=== PATIENT | male | born 1960 | race Caucasian/White ===

== ENCOUNTER 2019-01-10 18:33 | Emergency (ER) | payer MEDICARE, MEDICAID ==
[~2019-01-10] VITALS: Ht 165.1 cm; Wt 80.0 kg
[2019-01-10 19:00] VITALS: BP 181/94
[2019-01-10] MEDS ORDERED: ACETAMINOPHEN 325MG TABLET PO STA (19:01)
[2019-01-10] MEDS ORDERED: VANCOMYCIN 1 G PREMIX 200 ML IV ONE (19:15)
[2019-01-10] MEDS ORDERED: PIPERACILLIN/TAZ 3.375G PREMIX 50 ML IV ONE (19:15)
[2019-01-10 19:22] LABS: BASOPHILS % 0.8 % (0.0-2.0); EOSINOPHILS % 2.9 % (0.0-5.0); HEMATOCRIT. 29.6 % (42.0-52.0); HEMOGLOBIN. 10.3 g/dL (14.0-18.0); MEAN CORPUSCULAR HEMOGLOBIN 31.8 pg (28.0-32.0); MEAN CORPUSCULAR VOLUME 91.9 fL (80.0-94.0); MEAN PLATELET VOLUME 8.2 fl (7.4-10.4); NEUTROPHILS % 69.3 % (40.0-76.0); PLATELET 219 x1000/uL (130-400); RED BLOOD CELL COUNT 3.22 mill/uL (4.7-6.1); RED CELL DISTRIBUTION WIDTH 13.8 % (11.6-14.6)
[2019-01-10 19:31] LABS: PROTHROMBIN TIME 10.4 sec (9.6-11.0)
[2019-01-10 19:40] LABS: CHLORIDE 93 mEq/L (98-107)
[2019-01-11] MEDS ORDERED: METO-539 MT (18:28)
[2019-01-11] MEDS ORDERED: DONE5TAB33 MT (18:28)
[2019-01-11] MEDS ORDERED: HYDR-4135 MT (18:28)
[2019-01-11] MEDS ORDERED: BENA10TA10 MT (18:28)
[2019-01-11] MEDS ORDERED: CLOP75TA33 MT (18:28)
[2019-01-11] MEDS ORDERED: LOPE2CAP PO (18:28)
[2019-01-11] MEDS ORDERED: ASPI-1393 PO (18:28)
[2019-01-11] MEDS ORDERED: MINO2.5T2 MT (18:28)
[2019-01-11] MEDS ORDERED: CINA30 MT (18:28)
[2019-01-11] MEDS ORDERED: CLON0.1T MT (18:28)
[2019-01-11] MEDS ORDERED: ERGO2000 MT (18:28)
[2019-01-11] MEDS ORDERED: FOLI0.8T23 MT (18:37)
[2019-01-11] MEDS ORDERED: CALC1SOL PO (18:37)
== END 2019-01-10 21:26 | disposition left against medical advice (07) ==
LOC: ER 18:33 → EDBEDREQ 19:17 → ER 21:26 → CANBEDREQ 01-11 00:32
DX: A41.9 Sepsis, unspecified organism (principal); E11.22 Type 2 diabetes mellitus with diabetic chronic kidney disease; I12.0 Hypertensive chronic kidney disease with stage 5 chronic kidney disease or end stage renal disease; N18.6 End stage renal disease; Z86.73 Personal history of transient ischemic attack (TIA), and cerebral infarction without residual deficits; Z99.2 Dependence on renal dialysis
CPT/HCPCS: 36415; 71045; 80053; 83605; 84145; 84484; 85025; 85610; 87040; 93005; 96365; 96368; 99291; J2543; J3370

== ENCOUNTER 2019-01-11 08:50 | Inpatient (IN) | payer MEDICARE, MEDICAID ==
[~2019-01-11] VITALS: Ht 165.1 cm; Wt 79.8 kg
[2019-01-11] MEDS ORDERED: ACETAMINOPHEN 500MG TABLET PO ONE (09:30)
[2019-01-11] MEDS ORDERED: PIPERACILLIN/TAZ 3.375G PREMIX 50 ML IV ONE (09:30)
[2019-01-11] MEDS ORDERED: VANCOMYCIN 1 G PREMIX 200 ML IV ONE (09:30)
[2019-01-11] MEDS ORDERED: SODIUM CHLORIDE 0.9% 1000ML BAG (SEPSIS BOLUS) IV ONE (09:30)
[2019-01-11 09:45] LABS: BASOPHILS % 0.6 % (0.0-2.0); HEMATOCRIT. 26.1 % (42.0-52.0); LYMPHOCYTES % 14.8 % (20.0-50.0); MEAN CORPUSCULAR VOLUME 92.4 fL (80.0-94.0); MEAN PLATELET VOLUME 7.8 fl (7.4-10.4); MONOCYTES % 12.3 % (2.0-8.0); NEUTROPHILS % 69.3 % (40.0-76.0); PLATELET 188 x1000/uL (130-400); RED BLOOD CELL COUNT 2.82 mill/uL (4.7-6.1); RED CELL DISTRIBUTION WIDTH 13.6 % (11.6-14.6)
[2019-01-11 09:52] LABS: CHLORIDE 93 mEq/L (98-107)
[2019-01-11 09:53] LABS: PROTHROMBIN TIME 10.7 sec (9.6-11.0)
[2019-01-11] MEDS ORDERED: MAGNESIUM/ALUMINUM HYDROXIDE/SIMETHICONE 30ML UDC PO PRN (11:30)
[2019-01-11] MEDS ORDERED: HYDROCODONE/ACETAMINOPHEN 5/325MG TABLET PO PRN (11:30)
[2019-01-11] MEDS ORDERED: LORAZEPAM 0.5MG TABLET PO PRN (11:30)
[2019-01-11] MEDS ORDERED: IPRATROPIUM/ALBUTEROL 0.5-3(2.5)MG/3ML NEB INH PRN (11:30)
[2019-01-11] MEDS ORDERED: ONDANSETRON HCL 4MG/2ML INJ IV PRN (11:30)
[2019-01-11] MEDS ORDERED: DEXTROSE 50% WATER 50ML SYRINGE IV PRN (11:30)
[2019-01-11] MEDS ORDERED: DIPHENHYDRAMINE 50MG/ML VIAL IV PRN (11:30)
[2019-01-11] MEDS ORDERED: ACETAMINOPHEN 650MG SUPP PR PRN (11:30)
[2019-01-11] MEDS ORDERED: DOCUSATE SODIUM 100MG CAPSULE PO PRN (11:30)
[2019-01-11] MEDS ORDERED: GUAIFENESIN 200MG/10ML SUGAR FREE UDC PO PRN (11:30)
[2019-01-11] MEDS ORDERED: ACETAMINOPHEN 325MG TABLET PO PRN (11:30)
[2019-01-11] MEDS ORDERED: CARVEDILOL 3.125 MG TABLET PO NR (13:00)
[2019-01-11] MEDS ORDERED: LOSARTAN POTASSIUM 50 MG TABLET PO SCH (13:00)
[2019-01-11 13:15] VITALS: BP 172/84
[2019-01-11] MEDS ORDERED: SODIUM POLYSTYRENE SULFONATE 15 G/60 ML BOT PO NR (14:00)
[2019-01-11 15:30] LABS: BG BASE EXCESS -1.6 mmol/L (-2.0-2.0); BG CARBOXYHEMOGLOBIN 0.8 % (0.5-1.5); BG DEOXYHEMOGLOBIN 8.1 % (0.0-5.0); BG HCO3 ACT 22.7 mmol/L (22.0-26.0); BG METHEMOGLOBIN 0.2 % (0.0-1.5); BG OXYGEN SATURATION 91.8 % (92.0-98.5); BG OXYHEMOGLOBIN 90.9 % (94.0-97.0); BG PCO2 36.4 mmHg (35.0-45.0); BG PH 7.413 (7.350-7.450); BG PO2 67.7 mmHg (75.0-100.0); BG SAMPLE SITE LEFT RADIAL; BG VENT MODE ROOM AIR
[2019-01-11 15:40] VITALS: BP 189/89
[2019-01-11] MEDS: BLOOD SUGAR DIAGNOSTIC STRIP TEST SCH ×3 (17:20→21:00)
[2019-01-11] MEDS: INSULIN LISPRO 100 UNITS/ML SUBCUT SCH ×3 (17:37→21:00)
[2019-01-11] MEDS ORDERED: PIPERACILLIN/TAZ 2.25G PREMIX 50 ML IV SCH (18:00)
[2019-01-11] MEDS ORDERED: ASPI-1393 PO (18:28)
[2019-01-11] MEDS ORDERED: CLON0.1T MT (18:28)
[2019-01-11] MEDS ORDERED: MINO2.5T2 MT (18:28)
[2019-01-11] MEDS ORDERED: ERGO2000 MT (18:28)
[2019-01-11] MEDS ORDERED: METO-539 MT (18:28)
[2019-01-11] MEDS ORDERED: CINA30 MT (18:28)
[2019-01-11] MEDS ORDERED: CLOP75TA33 MT (18:28)
[2019-01-11] MEDS ORDERED: DONE5TAB33 MT (18:28)
[2019-01-11] MEDS ORDERED: HYDR-4135 MT (18:28)
[2019-01-11] MEDS ORDERED: BENA10TA10 MT (18:28)
[2019-01-11] MEDS ORDERED: LOPE2CAP PO (18:28)
[2019-01-11] MEDS ORDERED: CALC1SOL PO (18:37)
[2019-01-11] MEDS ORDERED: FOLI0.8T23 MT (18:37)
[2019-01-11 20:00] VITALS: BP 170/89
[2019-01-11] MEDS ORDERED: EPOETIN ALFA 4000UNITS/ML VIAL SUBCUT SCH (21:00)
[2019-01-11] MEDS ORDERED: VANCOMYCIN 1 G PREMIX 200 ML IV NR (22:00)
[2019-01-11] MEDS: CARVEDILOL 3.125 MG TABLET PO SCH (22:31)
[2019-01-11] MEDS: PIPERACILLIN/TAZ 2.25G PREMIX 50 ML IV SCH (22:31)
[2019-01-12] VITALS: BP 167/88
[2019-01-12] MEDS: IPRATROPIUM/ALBUTEROL 0.5-3(2.5)MG/3ML NEB INH SCH ×3 (00:24→15:04)
[2019-01-12] MEDS: CLONIDINE 0.1MG TABLET PO PRN ×2 (03:40→20:40)
[2019-01-12 04:00] VITALS: BP 164/87
[2019-01-12] MEDS: PIPERACILLIN/TAZ 2.25G PREMIX 50 ML IV SCH ×2 (05:30→13:43)
[2019-01-12] MEDS: INSULIN LISPRO 100 UNITS/ML SUBCUT SCH ×3 (06:26→18:22)
[2019-01-12] MEDS: BLOOD SUGAR DIAGNOSTIC STRIP TEST SCH ×3 (06:26→18:15)
[2019-01-12 06:52] LABS: BASOPHILS % 0.5 % (0.0-2.0); HEMATOCRIT. 22.6 % (42.0-52.0); HEMOGLOBIN. 7.9 g/dL (14.0-18.0); LYMPHOCYTES % 19.1 % (20.0-50.0); MEAN CORPUSCULAR HEMOGLOBIN 32.2 pg (28.0-32.0); MEAN CORPUSCULAR VOLUME 92.3 fL (80.0-94.0); MEAN PLATELET VOLUME 7.8 fl (7.4-10.4); MONOCYTES % 12.9 % (2.0-8.0); NEUTROPHILS % 61.5 % (40.0-76.0); PLATELET 169 x1000/uL (130-400); RED BLOOD CELL COUNT 2.45 mill/uL (4.7-6.1); RED CELL DISTRIBUTION WIDTH 13.6 % (11.6-14.6)
[2019-01-12 08:29] LABS: CHLORIDE 96 mEq/L (98-107)
[2019-01-12 08:43] LABS: LDL CHOLESTEROL 133 mg/dL (5-100)
[2019-01-12 08:44] LABS: HDL CHOLESTEROL 32 mg/dL (40-59); T4 FREE 0.87 ng/dL (0.76-1.46)
[2019-01-12] MEDS: CARVEDILOL 3.125 MG TABLET PO SCH (09:00)
[2019-01-12 12:00] VITALS: BP 158/82
[2019-01-12 15:12] LABS: HEMATOCRIT 24.6 % (42.0-52.0); HEMOGLOBIN 8.4 g/dL (14.0-18.0)
[2019-01-12 16:17] VITALS: BP 169/86
[2019-01-12 20:00] VITALS: BP 170/86
[2019-01-12 20:03] VITALS: BP 161/74
== END 2019-01-12 21:25 | disposition home or self-care (01) | DRG 871 ==
LOC: ER 08:50 → 6WST 10:14 → EDBEDREQ 10:20 → EDBEDREQSVC 10:20 → ENRESERV 11:28 → 6WST 17:32
PROVIDERS: ADMIT Internal Medicine; ATTEND Internal Medicine
PROC: 5A1D70Z Performance of Urinary Filtration, Intermittent, Less than 6 Hours Per Day (ICD-10-PCS; principal; 2019-01-11)
DX: A41.9 Sepsis, unspecified organism (principal); I50.23 Acute on chronic systolic (congestive) heart failure; N18.6 End stage renal disease; J18.9 Pneumonia, unspecified organism; D68.59 Other primary thrombophilia; E87.1 Hypo-osmolality and hyponatremia; I13.2 Hypertensive heart and chronic kidney disease with heart failure and with stage 5 chronic kidney disease, or end stage renal disease; I69.354 Hemiplegia and hemiparesis following cerebral infarction affecting left non-dominant side; D64.9 Anemia, unspecified; E11.22 Type 2 diabetes mellitus with diabetic chronic kidney disease; E78.00 Pure hypercholesterolemia, unspecified; E78.5 Hyperlipidemia, unspecified; E87.5 Hyperkalemia; K81.9 Cholecystitis, unspecified; K42.9 Umbilical hernia without obstruction or gangrene; Z99.2 Dependence on renal dialysis
CPT/HCPCS: 36415; 36600; 71045; 74176; 76700; 78227; 80061; 82375; 82805; 82962; 83605; 84145; 84439; 84443; 84484; 85014; 85018; 93005; 94640; 96365; 96368; 99291; A9537; J0885; J1815; J2543; J3370; J7030; J7050; J7620

== ENCOUNTER 2019-08-17 16:49 | Inpatient (IN) | payer MEDICARE, MEDICAID ==
[~2019-08-17] VITALS: Ht 165.1 cm; Wt 81.6 kg
[~2019-08-17 16:49] MED LIST: ASPI-1497 PO; BENA10TA74 MT; CALC1SOL PO; CINA30 MT; CLON0.1T MT; CLOP75TA33 MT; DONE5TAB33 MT; ERGO2000 MT; FOLI0.8T23 MT; HYDR-4135 MT; LOPE2CAP PO; METO-539 MT; MINO2.5T2 MT
[2019-08-17] MEDS ORDERED: SODIUM CHLORIDE 0.9% 1,000 ML IV ONE (18:05)
[2019-08-17] MEDS ORDERED: MORPHINE SULFATE 4 MG/ML CPJ (NOT FOR IM USE) IV STA (18:05)
[2019-08-17] MEDS ORDERED: ONDANSETRON HCL 4MG/2ML INJ IV STA (18:05)
[2019-08-17 19:07] LABS: BASOPHILS % 0.6 % (0.0-2.0); EOSINOPHILS % 2.7 % (0.0-5.0); HEMOGLOBIN. 9.8 g/dL (14.0-18.0); LYMPHOCYTES % 13.4 % (20.0-50.0); MEAN CORPUSCULAR HEMOGLOBIN 29.7 pg (28.0-32.0); MEAN CORPUSCULAR VOLUME 90.9 fL (80.0-94.0); MEAN PLATELET VOLUME 7.4 fl (7.4-10.4); MONOCYTES % 5.8 % (2.0-8.0); NEUTROPHILS % 77.5 % (40.0-76.0); PLATELET 194 x1000/uL (130-400); RED CELL DISTRIBUTION WIDTH 16.3 % (11.6-14.6)
[2019-08-17 19:10] LABS: CHLORIDE 100 mEq/L (98-107)
[2019-08-17 19:11] LABS: INR 1.1; PROTHROMBIN TIME 11.1 sec (9.6-11.0)
[2019-08-18] VITALS (7 sets, daily range): BP systolic 115–168; BP diastolic 69–89
[2019-08-18] MEDS ORDERED: DIPHENHYDRAMINE 25MG CAPSULE PO ONE (00:15)
[2019-08-18] MEDS ORDERED: DIPHENHYDRAMINE 25MG CAPSULE PO PRN (04:00)
[2019-08-18] MEDS ORDERED: TRAMADOL 50MG TABLET PO PRN (04:00)
[2019-08-18] MEDS ORDERED: BENAZEPRIL 10MG TABLET PO SCH (09:00)
[2019-08-18] MEDS ORDERED: METOPROLOL TARTRATE 50MG TABLET PO SCH (09:00)
[2019-08-18] MEDS ORDERED: FOLIC ACID/VITAMIN B COMP W-C TABLET PO SCH (09:00)
[2019-08-18] MEDS ORDERED: CLONIDINE 0.1MG TABLET PO SCH (09:00)
[2019-08-18] MEDS ORDERED: HYDRALAZINE HCL 50MG TABLET PO SCH (09:00)
[2019-08-18] MEDS ORDERED: ERGOCALCIFEROL MT SCH (09:00)
[2019-08-18] MEDS ORDERED: ASPIRIN 81MG EC TABLET PO SCH (09:00)
[2019-08-18] MEDS: CINACALCET HCL 30MG TABLET PO SCH ×2 (09:22→18:17)
[2019-08-18] MEDS: DONEPEZIL HCL 5MG TABLET PO SCH ×2 (09:23→18:17)
[2019-08-18] MEDS ORDERED: CLOPIDOGREL 75MG TABLET PO SCH ×3 (11:00→17:00)
[2019-08-18] MEDS: MINOXIDIL 2.5MG TABLET PO SCH ×2 (13:22→18:17)
[2019-08-18] MEDS ORDERED: CLONIDINE 0.1MG TABLET PO NR (14:00)
[2019-08-18] MEDS ORDERED: ONDANSETRON HCL 4MG/2ML INJ IV PRN (15:15)
[2019-08-18] MEDS ORDERED: IPRATROPIUM/ALBUTEROL 0.5-3(2.5)MG/3ML NEB HHN PRN (15:15)
[2019-08-18] MEDS ORDERED: BISACODYL 10MG SUPP PR PRN (15:15)
[2019-08-18] MEDS ORDERED: MORPHINE SULFATE 2 MG/ML CPJ (NOT FOR IM USE) IV PRN (15:15)
[2019-08-18] MEDS ORDERED: HYDRALAZINE 20MG/ML VIAL IV PRN (15:15)
[2019-08-18 15:58] LABS: CHLORIDE 104 mEq/L (98-107)
[2019-08-18 16:59] LABS: HEMATOCRIT. 29.1 % (42.0-52.0); HEMOGLOBIN. 9.5 g/dL (14.0-18.0); MEAN CORPUSCULAR HEMOGLOBIN 29.8 pg (28.0-32.0); MEAN PLATELET VOLUME 7.5 fl (7.4-10.4); PLATELET 177 x1000/uL (130-400); RED CELL DISTRIBUTION WIDTH 16.6 % (11.6-14.6)
[2019-08-18 17:28] LABS: PLATELET ESTIMATE NORMAL
[2019-08-18] MEDS ORDERED: EPOETIN ALFA 4000UNITS/ML VIAL SUBCUT SCH (21:00)
== END 2019-08-18 20:20 | disposition home or self-care (01) | DRG 391 ==
LOC: ER 16:49 → EDBEDREQSVC 08-18 00:41 → EDBEDREQTM 08-18 00:41 → EDBEDREQ 08-18 00:41 → EDBEDREQDT 08-18 00:41 → ENRESERV 08-18 02:19 → 7WST 08-18 03:38
PROVIDERS: ADMIT Internal Medicine; ATTEND Internal Medicine
PROC: 5A1D70Z Performance of Urinary Filtration, Intermittent, Less than 6 Hours Per Day (ICD-10-PCS; principal; 2019-08-18)
DX: K52.9 Noninfective gastroenteritis and colitis, unspecified (principal); I50.23 Acute on chronic systolic (congestive) heart failure; N18.6 End stage renal disease; I13.2 Hypertensive heart and chronic kidney disease with heart failure and with stage 5 chronic kidney disease, or end stage renal disease; D68.59 Other primary thrombophilia; R18.8 Other ascites; D64.9 Anemia, unspecified; E11.22 Type 2 diabetes mellitus with diabetic chronic kidney disease; E78.00 Pure hypercholesterolemia, unspecified; E78.5 Hyperlipidemia, unspecified; E87.5 Hyperkalemia; Z86.73 Personal history of transient ischemic attack (TIA), and cerebral infarction without residual deficits; Z90.49 Acquired absence of other specified parts of digestive tract; Z99.2 Dependence on renal dialysis; Z79.899 Other long term (current) drug therapy; Z79.82 Long term (current) use of aspirin
CPT/HCPCS: 36415; 74176; 80053; 83880; 84484; 85025; 86850; 86900; 93005; 96374; 96375; 99285; J0885; J2270; J2405; J7030; Q0163

== ENCOUNTER 2021-06-13 08:27 | Inpatient (IN) | payer MEDICARE, MEDICAID ==
[~2021-06-13] VITALS: Ht 167.6 cm; Wt 74.4 kg
[~2021-06-13 08:27] MED LIST changes: -CLON0.1T MT; +CLON0.1T PO; -CLOP75TA33 MT; +CLOP75TA33 PO; -HYDR-4135 MT; +HYDR-4135 PO; -LOPE2CAP PO; -METO-539 MT; +METO-539 PO; -MINO2.5T2 MT; +MINO2.5T2 PO
[2021-06-13 11:15] LABS: BASOPHILS % 0.7 % (0.0-2.0); EOSINOPHILS % 2.6 % (0.0-5.0); HEMATOCRIT. 39.2 % (42.0-52.0); HEMOGLOBIN. 12.9 g/dL (14.0-18.0); LYMPHOCYTES % 11.4 % (20.0-50.0); MEAN CORPUSCULAR HEMOGLOBIN 29.6 pg (28.0-32.0); MEAN CORPUSCULAR VOLUME 89.9 fL (80.0-94.0); MEAN PLATELET VOLUME 8.3 fl (7.4-10.4); MONOCYTES % 10.4 % (2.0-8.0); NEUTROPHILS % 74.9 % (40.0-76.0); PLATELET 134 x1000/uL (130-400); RED BLOOD CELL COUNT 4.36 mill/uL (4.7-6.1); RED CELL DISTRIBUTION WIDTH 16.1 % (11.6-14.6)
[2021-06-13 11:20] LABS: CHLORIDE 95 mEq/L (98-107)
[2021-06-13] MEDS ORDERED: ALBUTEROL (0.083%) 2.5MG/3ML NEB HHN NR (14:00)
[2021-06-13] MEDS ORDERED: FUROSEMIDE 40MG/4ML VIAL IV NR (14:00)
[2021-06-13] MEDS ORDERED: INSULIN REGULAR (HUMULIN R) 300UNITS/3ML VIAL IV NR (14:00)
[2021-06-13] MEDS ORDERED: ALBUTEROL 6.7GM HFA INHALER ORI PRN (17:30)
[2021-06-13] MEDS ORDERED: CLONIDINE 0.1MG TABLET PO PRN (17:30)
[2021-06-13] MEDS ORDERED: DOCUSATE SODIUM 100MG CAPSULE PO PRN (17:30)
[2021-06-13] MEDS ORDERED: GUAIFENESIN 200MG/10ML SUGAR FREE UDC PO PRN (17:30)
[2021-06-13] MEDS ORDERED: ONDANSETRON HCL 4MG/2ML INJ IV PRN (17:30)
[2021-06-13] MEDS ORDERED: MAGNESIUM/ALUMINUM HYDROXIDE/SIMETHICONE 30ML UDC PO PRN (17:30)
[2021-06-13] MEDS ORDERED: DEXTROSE 50% WATER 50ML SYRINGE IV PRN (17:30)
[2021-06-13] MEDS ORDERED: MORPHINE SULFATE 2 MG/ML CPJ (NOT FOR IM USE) IV PRN (17:30)
[2021-06-13] MEDS ORDERED: DIPHENHYDRAMINE 50MG/ML VIAL IV PRN (17:30)
[2021-06-13] MEDS ORDERED: LORAZEPAM 2MG/ML CPJ IV PRN (17:30)
[2021-06-13] MEDS ORDERED: AZITHROMYCIN 500 MG in DEXT 5% WATER 250 ML IV SCH (18:00)
[2021-06-13] MEDS ORDERED: CEFTRIAXONE 1 G PREMIX 50 ML IV NR (18:00)
[2021-06-13] MEDS: INSULIN LISPRO 100 UNITS/ML SUBCUT SCH ×2 (18:37→23:09)
[2021-06-13 18:49] LABS: HEPATITIS B SURFACE ANTIGEN NEGATIVE
[2021-06-13] MEDS: AZITHROMYCIN 500 MG in DEXT 5% WATER 250 ML IV SCH (20:16)
[2021-06-13 22:00] VITALS: BP 104/65
[2021-06-13] MEDS ORDERED: CALC667T6 PO (22:24)
[2021-06-13] MEDS ORDERED: FURO40TA5 PO (22:24)
[2021-06-13] MEDS ORDERED: ATOR40TA70 PO (22:24)
[2021-06-13] MEDS ORDERED: DIPH1TAB24 PO (22:24)
[2021-06-13] MEDS ORDERED: GABA-529 PO (22:24)
[2021-06-13] MEDS: ACETAMINOPHEN 325MG TABLET PO PRN (22:56)
[2021-06-13] MEDS: SODIUM CHLORIDE 0.9% INJ 3ML FLUSH IVF SCH (22:57)
[2021-06-13] MEDS: ENOXAPARIN 30MG/0.3ML SYR SUBCUT SCH (22:57)
[2021-06-13] MEDS: BLOOD SUGAR DIAGNOSTIC STRIP TEST SCH (22:57)
[2021-06-13] MEDS ORDERED: NALOXONE HCL 0.4 MG/ML 1ML VIAL IV PRN (23:45)
[2021-06-13] MEDS ORDERED: LACTULOSE 20G/30ML UDC PO SCH (23:45)
[2021-06-14] VITALS: BP 126/85
[2021-06-14] MEDS ORDERED: SODIUM POLYSTYRENE SULFONATE 15 G/60 ML BOT PO SCH (01:00)
[2021-06-14 04:00] VITALS: BP 120/45
[2021-06-14] MEDS: SODIUM CHLORIDE 0.9% INJ 3ML FLUSH IVF SCH ×3 (05:38→20:58)
[2021-06-14] MEDS: BLOOD SUGAR DIAGNOSTIC STRIP TEST SCH ×4 (06:18→20:58)
[2021-06-14 06:19] LABS: BASOPHILS % 0.7 % (0.0-2.0); EOSINOPHILS % 0.1 % (0.0-5.0); HEMATOCRIT. 32.8 % (42.0-52.0); HEMOGLOBIN. 10.9 g/dL (14.0-18.0); LYMPHOCYTES % 13.5 % (20.0-50.0); MEAN CORPUSCULAR HEMOGLOBIN 30.1 pg (28.0-32.0); MEAN CORPUSCULAR VOLUME 90.8 fL (80.0-94.0); MEAN PLATELET VOLUME 8.5 fl (7.4-10.4); MONOCYTES % 13.8 % (2.0-8.0); NEUTROPHILS % 71.9 % (40.0-76.0); PLATELET 142 x1000/uL (130-400); RED BLOOD CELL COUNT 3.61 mill/uL (4.7-6.1); RED CELL DISTRIBUTION WIDTH 15.9 % (11.6-14.6)
[2021-06-14 06:23] LABS: CHLORIDE 99 mEq/L (98-107)
[2021-06-14] MEDS: INSULIN LISPRO 100 UNITS/ML SUBCUT SCH ×4 (07:56→20:58)
[2021-06-14 08:00] VITALS: BP 129/71
[2021-06-14] MEDS: HYDROCODONE/ACETAMINOPHEN 5/325MG TABLET PO PRN ×2 (10:33→21:58)
[2021-06-14 12:00] VITALS: BP 125/75
[2021-06-14] MEDS ORDERED: GUAIFENESIN-DM 200MG-20MG/10ML UDC PO PRN (13:45)
[2021-06-14] MEDS: ACETAMINOPHEN 325MG TABLET PO PRN (15:30)
[2021-06-14 16:00] VITALS: BP 111/68
[2021-06-14] MEDS: CEFTRIAXONE 1,000 MG in DEXTROSE 5% WATER 50 ML IV SCH (18:56)
[2021-06-14] MEDS: AZITHROMYCIN 500 MG in DEXT 5% WATER 250 ML IV SCH (18:56)
[2021-06-14 20:00] VITALS: BP 112/65
[2021-06-14] MEDS: ENOXAPARIN 30MG/0.3ML SYR SUBCUT SCH (20:57)
[2021-06-15] VITALS: BP 111/68
[2021-06-15 04:00] VITALS: BP 120/76
[2021-06-15] MEDS: SODIUM CHLORIDE 0.9% INJ 3ML FLUSH IVF SCH ×3 (05:49→21:08)
[2021-06-15] MEDS: BLOOD SUGAR DIAGNOSTIC STRIP TEST SCH ×4 (05:50→21:07)
[2021-06-15 08:00] VITALS: BP 109/79
[2021-06-15] MEDS: INSULIN LISPRO 100 UNITS/ML SUBCUT SCH ×4 (08:00→21:10)
[2021-06-15 12:00] VITALS: BP 115/70
[2021-06-15 16:00] VITALS: BP 111/75
[2021-06-15] MEDS: CEFTRIAXONE 1,000 MG in DEXTROSE 5% WATER 50 ML IV SCH (17:21)
[2021-06-15] MEDS: AZITHROMYCIN 500 MG in DEXT 5% WATER 250 ML IV SCH (17:36)
[2021-06-15 20:00] VITALS: BP 103/62
[2021-06-15] MEDS: ACETAMINOPHEN 325MG TABLET PO PRN (21:07)
[2021-06-15] MEDS: ENOXAPARIN 30MG/0.3ML SYR SUBCUT SCH (21:07)
[2021-06-16] VITALS: BP 110/71
[2021-06-16] MEDS: ACETAMINOPHEN 325MG TABLET PO PRN ×2 (03:10→15:55)
[2021-06-16 04:00] VITALS: BP 98/67
[2021-06-16] MEDS: SODIUM CHLORIDE 0.9% INJ 3ML FLUSH IVF SCH ×3 (06:15→21:55)
[2021-06-16] MEDS: BLOOD SUGAR DIAGNOSTIC STRIP TEST SCH ×4 (06:15→21:53)
[2021-06-16 08:00] VITALS: BP 97/59
[2021-06-16] MEDS: INSULIN LISPRO 100 UNITS/ML SUBCUT SCH ×4 (08:35→21:00)
[2021-06-16 12:00] VITALS: BP 96/57
[2021-06-16 16:00] VITALS: BP 108/70
[2021-06-16] MEDS: AZITHROMYCIN 500 MG in DEXT 5% WATER 250 ML IV SCH (17:01)
[2021-06-16] MEDS: CEFTRIAXONE 1,000 MG in DEXTROSE 5% WATER 50 ML IV SCH (17:01)
[2021-06-16 20:00] VITALS: BP 90/51
[2021-06-16] MEDS: ENOXAPARIN 30MG/0.3ML SYR SUBCUT SCH (21:54)
[2021-06-17] VITALS (7 sets, daily range): BP systolic 92–110; BP diastolic 55–68
[2021-06-17] MEDS: BLOOD SUGAR DIAGNOSTIC STRIP TEST SCH ×4 (06:48→21:19)
[2021-06-17] MEDS: SODIUM CHLORIDE 0.9% INJ 3ML FLUSH IVF SCH ×3 (06:49→21:27)
[2021-06-17 07:23] LABS: BASOPHILS % 0.3 % (0.0-2.0); EOSINOPHILS % 4.9 % (0.0-5.0); HEMATOCRIT. 37.4 % (42.0-52.0); HEMOGLOBIN. 12.4 g/dL (14.0-18.0); LYMPHOCYTES % 9.5 % (20.0-50.0); MEAN CORPUSCULAR HEMOGLOBIN 29.6 pg (28.0-32.0); MEAN CORPUSCULAR VOLUME 89.4 fL (80.0-94.0); MEAN PLATELET VOLUME 8.3 fl (7.4-10.4); MONOCYTES % 8.7 % (2.0-8.0); NEUTROPHILS % 76.6 % (40.0-76.0); PLATELET 251 x1000/uL (130-400); RED BLOOD CELL COUNT 4.18 mill/uL (4.7-6.1); RED CELL DISTRIBUTION WIDTH 16.9 % (11.6-14.6)
[2021-06-17] MEDS: INSULIN LISPRO 100 UNITS/ML SUBCUT SCH ×4 (07:29→21:27)
[2021-06-17] MEDS: FOLIC ACID/VITAMIN B COMP W-C TABLET PO SCH ×2 (08:14→17:12)
[2021-06-17] MEDS: CEFTRIAXONE 1,000 MG in DEXTROSE 5% WATER 50 ML IV SCH (17:13)
[2021-06-17] MEDS: AZITHROMYCIN 500 MG in DEXT 5% WATER 250 ML IV SCH (17:13)
[2021-06-17] MEDS: ENOXAPARIN 30MG/0.3ML SYR SUBCUT SCH (21:27)
[2021-06-18] VITALS (7 sets, daily range): BP systolic 113–131; BP diastolic 64–76
[2021-06-18] MEDS ORDERED: PROM6.254 MT (02:49)
[2021-06-18] MEDS ORDERED: PROM6.254 PO (02:49)
[2021-06-18] MEDS ORDERED: ALBU6.7H9 IH (02:50)
[2021-06-18] MEDS: SODIUM CHLORIDE 0.9% INJ 3ML FLUSH IVF SCH ×2 (06:00→15:12)
[2021-06-18 06:13] LABS: BASOPHILS % 0.4 % (0.0-2.0); EOSINOPHILS % 9.3 % (0.0-5.0); HEMATOCRIT. 37.4 % (42.0-52.0); HEMOGLOBIN. 12.3 g/dL (14.0-18.0); LYMPHOCYTES % 13.6 % (20.0-50.0); MEAN CORPUSCULAR HEMOGLOBIN 29.7 pg (28.0-32.0); MEAN CORPUSCULAR VOLUME 90.3 fL (80.0-94.0); MEAN PLATELET VOLUME 7.9 fl (7.4-10.4); MONOCYTES % 12.4 % (2.0-8.0); NEUTROPHILS % 64.3 % (40.0-76.0); PLATELET 242 x1000/uL (130-400); RED BLOOD CELL COUNT 4.14 mill/uL (4.7-6.1); RED CELL DISTRIBUTION WIDTH 16.3 % (11.6-14.6)
[2021-06-18] MEDS: BLOOD SUGAR DIAGNOSTIC STRIP TEST SCH ×3 (06:30→17:49)
[2021-06-18] MEDS: HYDROCODONE/ACETAMINOPHEN 5/325MG TABLET PO PRN (06:35)
[2021-06-18] MEDS: INSULIN LISPRO 100 UNITS/ML SUBCUT SCH ×3 (07:16→17:57)
[2021-06-18] MEDS: FOLIC ACID/VITAMIN B COMP W-C TABLET PO SCH ×2 (09:06→17:49)
== END 2021-06-18 20:01 | disposition home or self-care (01) | DRG 871 ==
LOC: ER 08:27 → 7WST 16:48 → EDBEDREQ 16:52 → EDBEDREQTM 16:52 → ENRESERV 20:10 → 7WST 23:50
PROVIDERS: ADMIT Internal Medicine; ATTEND Internal Medicine
PROC: 5A1D70Z Performance of Urinary Filtration, Intermittent, Less than 6 Hours Per Day (ICD-10-PCS; principal; 2021-06-13)
PROC: 5A1D70Z Performance of Urinary Filtration, Intermittent, Less than 6 Hours Per Day (ICD-10-PCS; 2021-06-17)
DX: A41.89 Other specified sepsis (principal); J12.82 Pneumonia due to coronavirus disease 2019; U07.1 COVID-19; J96.00 Acute respiratory failure, unspecified whether with hypoxia or hypercapnia; N18.6 End stage renal disease; I50.23 Acute on chronic systolic (congestive) heart failure; I13.2 Hypertensive heart and chronic kidney disease with heart failure and with stage 5 chronic kidney disease, or end stage renal disease; E46 Unspecified protein-calorie malnutrition; E87.5 Hyperkalemia; E11.22 Type 2 diabetes mellitus with diabetic chronic kidney disease; D64.9 Anemia, unspecified; Z79.82 Long term (current) use of aspirin; Z79.899 Other long term (current) drug therapy; Z86.73 Personal history of transient ischemic attack (TIA), and cerebral infarction without residual deficits; Z99.2 Dependence on renal dialysis; Z79.4 Long term (current) use of insulin
CPT/HCPCS: 36415; 71045; 80048; 80053; 82728; 82962; 83615; 83880; 84132; 84484; 85025; 85379; 86140; 86705; 86706; 86709; 86803; 87340; 87426; 93005; 94644; 99285; C9803; J0456; J0696; J1650; J1815; J1940; J7040; J7060; U0003; U0005

== ENCOUNTER 2022-04-15 09:22 | Inpatient (IN) | payer MEDICARE, MEDICAID ==
[~2022-04-15] VITALS: Ht 162.6 cm; Wt 85.3 kg
[~2022-04-15 09:22] MED LIST changes: +ALBU6.7H9 IH; +ATOR40TA70 PO; -BENA10TA74 MT; -CALC1SOL PO; +CALC667T6 PO; -CINA30 MT; +DIPH1TAB24 PO; -DONE5TAB33 MT; -ERGO2000 MT; +FURO40TA5 PO; +GABA-529 PO; +PROM6.254 MT
[2022-04-15 11:12] LABS: HEMATOCRIT. 29.4 % (42.0-52.0); HEMOGLOBIN. 9.9 g/dL (14.0-18.0); MEAN CORPUSCULAR HEMOGLOBIN 30.8 pg (28.0-32.0); PLATELET 296 x1000/uL (130-400); RED BLOOD CELL COUNT 3.23 mill/uL (4.7-6.1); RED CELL DISTRIBUTION WIDTH 16.3 % (11.6-14.6)
[2022-04-15 11:20] LABS: CHLORIDE 91 mEq/L (98-107)
[2022-04-15] MEDS ORDERED: LABETALOL 5MG/ML SYR 20 MG/4 ML SYRINGE IV ONE (11:45)
[2022-04-15 11:47] LABS: PLATELET ESTIMATE NORMAL
[2022-04-15 13:48] LABS: HEPATITIS B SURFACE ANTIGEN NEGATIVE
[2022-04-15] MEDS ORDERED: MAGNESIUM/ALUMINUM HYDROXIDE/SIMETHICONE 30ML UDC PO PRN (18:00)
[2022-04-15] MEDS ORDERED: ACETAMINOPHEN 325MG TABLET PO PRN ×2 (18:00)
[2022-04-15] MEDS ORDERED: ZOLPIDEM TARTRATE 5MG TABLET PO PRN (18:00)
[2022-04-15] MEDS ORDERED: ONDANSETRON HCL 4MG/2ML INJ IV PRN (18:00)
[2022-04-15] MEDS ORDERED: DIPHENHYDRAMINE 50MG/ML VIAL IV PRN (18:00)
[2022-04-15] MEDS ORDERED: DEXTROSE 50% WATER 50ML SYRINGE IV PRN (18:00)
[2022-04-15] MEDS ORDERED: IPRATROPIUM/ALBUTEROL 0.5-3(2.5)MG/3ML NEB HHN PRN (18:00)
[2022-04-15 20:40] VITALS: BP 183/88
[2022-04-15] MEDS: INSULIN LISPRO 100 UNITS/ML SUBCUT SCH (21:00)
[2022-04-15] MEDS: BLOOD SUGAR DIAGNOSTIC STRIP TEST SCH (21:00)
[2022-04-15] MEDS: METOPROLOL TARTRATE 50MG TABLET PO SCH (22:56)
[2022-04-15] MEDS: HYDRALAZINE HCL 50MG TABLET PO SCH (22:56)
[2022-04-15] MEDS: SODIUM CHLORIDE 0.9% INJ 3ML FLUSH IVF SCH (22:56)
[2022-04-16] VITALS (7 sets, daily range): BP systolic 138–182; BP diastolic 63–80
[2022-04-16] MEDS: HYDRALAZINE 20MG/ML VIAL IV PRN ×2 (00:13→05:11)
[2022-04-16] MEDS: SODIUM CHLORIDE 0.9% INJ 3ML FLUSH IVF SCH ×3 (05:10→20:31)
[2022-04-16] MEDS: CLONIDINE 0.1MG TABLET PO PRN (05:11)
[2022-04-16] MEDS: BLOOD SUGAR DIAGNOSTIC STRIP TEST SCH ×4 (06:33→20:31)
[2022-04-16] MEDS: INSULIN LISPRO 100 UNITS/ML SUBCUT SCH ×4 (07:50→20:31)
[2022-04-16] MEDS: METOPROLOL TARTRATE 50MG TABLET PO SCH ×2 (08:13→20:31)
[2022-04-16] MEDS: HYDRALAZINE HCL 50MG TABLET PO SCH ×2 (08:13→20:31)
[2022-04-16] MEDS: FOLIC ACID/VITAMIN B COMP W-C TABLET PO SCH (08:13)
[2022-04-16] MEDS: ASPIRIN 81MG EC TABLET PO SCH (08:13)
[2022-04-17 03:58] VITALS: BP 148/62
[2022-04-17] MEDS: BLOOD SUGAR DIAGNOSTIC STRIP TEST SCH ×4 (06:17→22:07)
[2022-04-17] MEDS: SODIUM CHLORIDE 0.9% INJ 3ML FLUSH IVF SCH ×3 (06:17→22:10)
[2022-04-17] MEDS: INSULIN LISPRO 100 UNITS/ML SUBCUT SCH ×4 (07:50→22:07)
[2022-04-17 08:00] VITALS: BP 163/68
[2022-04-17] MEDS: FOLIC ACID/VITAMIN B COMP W-C TABLET PO SCH (08:11)
[2022-04-17] MEDS: HYDRALAZINE HCL 50MG TABLET PO SCH ×2 (08:11→22:10)
[2022-04-17] MEDS: METOPROLOL TARTRATE 50MG TABLET PO SCH ×2 (08:11→22:09)
[2022-04-17] MEDS: ASPIRIN 81MG EC TABLET PO SCH (08:11)
[2022-04-17 12:00] VITALS: BP 112/58
[2022-04-17 16:00] VITALS: BP 148/50
[2022-04-17 20:00] VITALS: BP 125/83
[2022-04-18] VITALS: BP 135/70
[2022-04-18 03:44] VITALS: BP 120/76
[2022-04-18] MEDS: BLOOD SUGAR DIAGNOSTIC STRIP TEST SCH ×4 (07:17→21:50)
[2022-04-18] MEDS: SODIUM CHLORIDE 0.9% INJ 3ML FLUSH IVF SCH ×3 (07:18→21:50)
[2022-04-18 08:00] VITALS: BP 168/63
[2022-04-18] MEDS: ASPIRIN 81MG EC TABLET PO SCH (09:21)
[2022-04-18] MEDS: FOLIC ACID/VITAMIN B COMP W-C TABLET PO SCH (09:21)
[2022-04-18] MEDS: METOPROLOL TARTRATE 50MG TABLET PO SCH ×2 (09:21→20:45)
[2022-04-18] MEDS: HYDRALAZINE HCL 50MG TABLET PO SCH ×2 (09:21→20:49)
[2022-04-18] MEDS: INSULIN LISPRO 100 UNITS/ML SUBCUT SCH ×4 (09:23→20:50)
[2022-04-18 12:00] VITALS: BP 142/44
[2022-04-18 20:00] VITALS: BP 177/109
[2022-04-19] VITALS (7 sets, daily range): BP systolic 141–179; BP diastolic 58–86
[2022-04-19] MEDS: CLONIDINE 0.1MG TABLET PO PRN (05:04)
[2022-04-19] MEDS: SODIUM CHLORIDE 0.9% INJ 3ML FLUSH IVF SCH ×3 (05:57→21:37)
[2022-04-19] MEDS: BLOOD SUGAR DIAGNOSTIC STRIP TEST SCH ×4 (07:20→21:36)
[2022-04-19] MEDS: INSULIN LISPRO 100 UNITS/ML SUBCUT SCH ×4 (07:50→21:00)
[2022-04-19] MEDS: METOPROLOL TARTRATE 50MG TABLET PO SCH ×2 (09:53→21:34)
[2022-04-19] MEDS: HYDRALAZINE HCL 50MG TABLET PO SCH ×2 (09:54→21:36)
[2022-04-19] MEDS: FOLIC ACID/VITAMIN B COMP W-C TABLET PO SCH (09:54)
[2022-04-19] MEDS: ASPIRIN 81MG EC TABLET PO SCH (09:55)
[2022-04-19] MEDS: HYDRALAZINE 20MG/ML VIAL IV PRN (18:35)
[2022-04-20] VITALS: BP 107/49
[2022-04-20 04:00] VITALS: BP 149/43
[2022-04-20] MEDS: BLOOD SUGAR DIAGNOSTIC STRIP TEST SCH ×4 (06:13→21:00)
[2022-04-20] MEDS: SODIUM CHLORIDE 0.9% INJ 3ML FLUSH IVF SCH ×3 (06:15→21:34)
[2022-04-20] MEDS: INSULIN LISPRO 100 UNITS/ML SUBCUT SCH ×4 (07:46→21:00)
[2022-04-20 08:25] VITALS: BP 129/47
[2022-04-20] MEDS: METOPROLOL TARTRATE 50MG TABLET PO SCH ×2 (09:00→21:00)
[2022-04-20] MEDS: HYDRALAZINE HCL 50MG TABLET PO SCH ×2 (09:27→21:00)
[2022-04-20] MEDS: ASPIRIN 81MG EC TABLET PO SCH (09:27)
[2022-04-20] MEDS: FOLIC ACID/VITAMIN B COMP W-C TABLET PO SCH (09:27)
[2022-04-20 12:00] VITALS: BP 140/55
[2022-04-20 16:00] VITALS: BP 154/61
[2022-04-20 23:57] VITALS: BP 172/63
[2022-04-21] MEDS: CLONIDINE 0.1MG TABLET PO PRN (00:08)
[2022-04-21 04:00] VITALS: BP 138/52
[2022-04-21] MEDS: SODIUM CHLORIDE 0.9% INJ 3ML FLUSH IVF SCH ×2 (05:35→21:14)
[2022-04-21] MEDS: BLOOD SUGAR DIAGNOSTIC STRIP TEST SCH ×4 (06:35→21:08)
[2022-04-21] MEDS: INSULIN LISPRO 100 UNITS/ML SUBCUT SCH ×4 (07:50→21:00)
[2022-04-21 08:00] VITALS: BP 182/79
[2022-04-21] MEDS: HYDRALAZINE HCL 50MG TABLET PO SCH ×2 (09:00→21:14)
[2022-04-21] MEDS: ASPIRIN 81MG EC TABLET PO SCH (09:00)
[2022-04-21] MEDS: METOPROLOL TARTRATE 50MG TABLET PO SCH ×2 (09:00→21:13)
[2022-04-21 11:14] LABS: HEPATITIS B SURFACE ANTIGEN NEGATIVE
[2022-04-21 12:00] VITALS: BP 146/69
[2022-04-21] MEDS: FOLIC ACID/VITAMIN B COMP W-C TABLET PO SCH (13:12)
[2022-04-21 16:00] VITALS: BP 129/87
[2022-04-21 20:00] VITALS: BP 174/73
[2022-04-22] VITALS: BP 144/63
[2022-04-22 04:00] VITALS: BP 145/69
[2022-04-22] MEDS: SODIUM CHLORIDE 0.9% INJ 3ML FLUSH IVF SCH ×3 (05:00→21:57)
[2022-04-22] MEDS: BLOOD SUGAR DIAGNOSTIC STRIP TEST SCH ×4 (06:26→21:54)
[2022-04-22] MEDS: INSULIN LISPRO 100 UNITS/ML SUBCUT SCH ×4 (06:53→21:00)
[2022-04-22 08:20] VITALS: BP 163/71
[2022-04-22] MEDS: FOLIC ACID/VITAMIN B COMP W-C TABLET PO SCH (09:04)
[2022-04-22] MEDS: METOPROLOL TARTRATE 50MG TABLET PO SCH ×2 (09:04→21:56)
[2022-04-22] MEDS: HYDRALAZINE HCL 50MG TABLET PO SCH (09:05)
[2022-04-22] MEDS: ASPIRIN 81MG EC TABLET PO SCH (09:05)
[2022-04-22 12:12] VITALS: BP 162/68
[2022-04-22 16:23] VITALS: BP 125/59
[2022-04-22 20:00] VITALS: BP 128/55
[2022-04-22] MEDS: HYDRALAZINE HCL 100MG TABLET PO SCH (21:56)
[2022-04-23] VITALS: BP 123/52
[2022-04-23 03:55] VITALS: BP 116/49
[2022-04-23] MEDS: SODIUM CHLORIDE 0.9% INJ 3ML FLUSH IVF SCH ×3 (05:41→21:24)
[2022-04-23] MEDS: BLOOD SUGAR DIAGNOSTIC STRIP TEST SCH ×4 (06:57→20:29)
[2022-04-23] MEDS: INSULIN LISPRO 100 UNITS/ML SUBCUT SCH ×4 (07:50→20:30)
[2022-04-23 08:04] VITALS: BP 152/67
[2022-04-23] MEDS: HYDRALAZINE HCL 100MG TABLET PO SCH ×4 (09:00→21:25)
[2022-04-23] MEDS: METOPROLOL TARTRATE 50MG TABLET PO SCH ×4 (09:00→21:24)
[2022-04-23] MEDS: ASPIRIN 81MG EC TABLET PO SCH ×3 (09:00→14:40)
[2022-04-23] MEDS: FOLIC ACID/VITAMIN B COMP W-C TABLET PO SCH ×3 (09:00→14:40)
[2022-04-23] MEDS: HYDRALAZINE 20MG/ML VIAL IV PRN (09:23)
[2022-04-23 12:00] VITALS: BP 152/77
[2022-04-23 16:30] VITALS: BP 156/67
[2022-04-23 20:00] VITALS: BP 159/67
[2022-04-24] VITALS: BP 152/66
[2022-04-24 04:09] VITALS: BP 155/69
[2022-04-24] MEDS: SODIUM CHLORIDE 0.9% INJ 3ML FLUSH IVF SCH ×2 (05:17→14:18)
[2022-04-24] MEDS: BLOOD SUGAR DIAGNOSTIC STRIP TEST SCH ×2 (06:53→12:20)
[2022-04-24] MEDS: INSULIN LISPRO 100 UNITS/ML SUBCUT SCH ×2 (07:46→14:17)
[2022-04-24 08:00] VITALS: BP 180/73
[2022-04-24] MEDS: HYDRALAZINE HCL 100MG TABLET PO SCH (09:39)
[2022-04-24] MEDS: METOPROLOL TARTRATE 50MG TABLET PO SCH (09:39)
[2022-04-24] MEDS: ASPIRIN 81MG EC TABLET PO SCH (09:39)
[2022-04-24] MEDS: FOLIC ACID/VITAMIN B COMP W-C TABLET PO SCH (09:39)
[2022-04-24 12:00] VITALS: BP 197/74
[2022-04-24] MEDS: CLONIDINE 0.1MG TABLET PO PRN (14:16)
[2022-04-24 14:31] VITALS: BP 156/75
== END 2022-04-24 16:55 | DRG 291 ==
LOC: ER 09:22 → 6WST 13:21 → EDBEDREQTM 13:36 → EDBEDREQ 13:36 → ENRESERV 19:43 → CANRESERV 19:43 → ENRESERV 20:04 → EDBEDREQSVC 20:28
PROVIDERS: ADMIT Internal Medicine; ATTEND Internal Medicine
PROC: 5A1D70Z Performance of Urinary Filtration, Intermittent, Less than 6 Hours Per Day (ICD-10-PCS; principal; 2022-04-15)
PROC: 5A1D70Z Performance of Urinary Filtration, Intermittent, Less than 6 Hours Per Day (ICD-10-PCS; 2022-04-18)
DX: I13.2 Hypertensive heart and chronic kidney disease with heart failure and with stage 5 chronic kidney disease, or end stage renal disease (principal); G93.41 Metabolic encephalopathy; N18.6 End stage renal disease; I50.33 Acute on chronic diastolic (congestive) heart failure; I69.351 Hemiplegia and hemiparesis following cerebral infarction affecting right dominant side; R47.01 Aphasia; D63.1 Anemia in chronic kidney disease; Z20.822 Contact with and (suspected) exposure to COVID-19; E11.22 Type 2 diabetes mellitus with diabetic chronic kidney disease; I25.10 Atherosclerotic heart disease of native coronary artery without angina pectoris; Z99.2 Dependence on renal dialysis; Z90.49 Acquired absence of other specified parts of digestive tract; Z91.15 Patient's noncompliance with renal dialysis
CPT/HCPCS: 36415; 71045; 80053; 82962; 83036; 83605; 83880; 84484; 85025; 86705; 86709; 86803; 87340; 87426; 93005; 97110; 97162; 97166; 97530; 99285; C9803; J0360; J1815; J3490

== ENCOUNTER 2022-04-26 11:25 | Inpatient (IN) | payer MEDICARE, MEDICAID ==
[~2022-04-26] VITALS: Ht 172.7 cm; Wt 59.9 kg
[2022-04-26] MEDS ORDERED: ONDANSETRON HCL 4MG/2ML INJ IV ONE ×2 (12:15→15:30)
[2022-04-26 13:08] LABS: HEMATOCRIT. 30.8 % (42.0-52.0); HEMOGLOBIN. 10.3 g/dL (14.0-18.0); MEAN CORPUSCULAR HEMOGLOBIN 30.6 pg (28.0-32.0); MEAN CORPUSCULAR VOLUME 91.3 fL (80.0-94.0); MEAN PLATELET VOLUME 7.4 fl (7.4-10.4); PLATELET 223 x1000/uL (130-400); RED BLOOD CELL COUNT 3.37 mill/uL (4.7-6.1); RED CELL DISTRIBUTION WIDTH 15.8 % (11.6-14.6)
[2022-04-26 13:16] LABS: CHLORIDE 93 mEq/L (98-107)
[2022-04-26 13:40] LABS: PLATELET ESTIMATE NORMAL
[2022-04-26 13:46] LABS: INR 0.9; PROTHROMBIN TIME 10.2 sec (9.6-11.0)
[2022-04-26] MEDS ORDERED: PANTOPRAZOLE SODIUM 40 MG/VIAL IV ONE (14:45)
[2022-04-26] MEDS: PANTOPRAZOLE SODIUM 40 MG/VIAL IV SCH (22:15)
[2022-04-26] MEDS ORDERED: ALBUTEROL (0.083%) 2.5MG/3ML NEB HHN PRN (22:30)
[2022-04-26] MEDS ORDERED: DEXTROSE 50% WATER 50ML SYRINGE IV PRN (22:30)
[2022-04-26] MEDS ORDERED: MORPHINE SULFATE 2 MG/ML CPJ (NOT FOR IM USE) IV PRN (22:30)
[2022-04-26] MEDS ORDERED: CLONIDINE 0.1MG TABLET GT PRN (22:30)
[2022-04-26] MEDS ORDERED: ONDANSETRON HCL 4MG/2ML INJ IV PRN (22:30)
[2022-04-26] MEDS: DEXT 5%/0.45% NACL 1000ML 1,000 ML IV SCH (22:52)
[2022-04-27] VITALS (7 sets, daily range): BP systolic 106–192; BP diastolic 57–105
[2022-04-27 00:17] LABS: HEMATOCRIT 29.2 % (42.0-52.0); HEMOGLOBIN 9.7 g/dL (14.0-18.0)
[2022-04-27 00:54] LABS: TOTAL IRON BINDING CAPACITY 214 ug/dL (250-450)
[2022-04-27 01:17] LABS: HEPATITIS B SURFACE ANTIGEN NEGATIVE
[2022-04-27] MEDS ORDERED: INFLUENZA VACCINE 05/PF 0.5 ML SYRINGE IM ONE (03:00)
[2022-04-27] MEDS: BLOOD SUGAR DIAGNOSTIC STRIP TEST SCH ×4 (06:41→21:00)
[2022-04-27] MEDS: INSULIN LISPRO 100 UNITS/ML SUBCUT SCH ×4 (07:50→21:00)
[2022-04-27 08:09] LABS: BASOPHILS % 0.3 % (0.0-2.0); EOSINOPHILS % 10.4 % (0.0-5.0); HEMATOCRIT. 26.1 % (42.0-52.0); HEMOGLOBIN. 8.5 g/dL (14.0-18.0); LYMPHOCYTES % 11.4 % (20.0-50.0); MEAN CORPUSCULAR HEMOGLOBIN 30.6 pg (28.0-32.0); MEAN CORPUSCULAR VOLUME 93.7 fL (80.0-94.0); MEAN PLATELET VOLUME 7.6 fl (7.4-10.4); MONOCYTES % 6.8 % (2.0-8.0); NEUTROPHILS % 71.1 % (40.0-76.0); PLATELET 191 x1000/uL (130-400); RED BLOOD CELL COUNT 2.79 mill/uL (4.7-6.1); RED CELL DISTRIBUTION WIDTH 16.9 % (11.6-14.6)
[2022-04-27] MEDS: PANTOPRAZOLE SODIUM 40 MG/VIAL IV SCH ×2 (08:29→21:00)
[2022-04-27] MEDS ORDERED: PANTOPRAZOLE SODIUM 40 MG/VIAL IV SCH (09:00)
[2022-04-27] MEDS ORDERED: NALOXONE HCL 0.4MG/ML VIAL IV PRN (13:15)
[2022-04-27] MEDS: HYDRALAZINE HCL 50MG TABLET PO SCH (17:00)
[2022-04-27] MEDS: DEXT 5%/0.45% NACL 1000ML 1,000 ML IV SCH (18:30)
[2022-04-27 18:54] LABS: HEMOGLOBIN 8.6 g/dL (14.0-18.0)
[2022-04-27] MEDS: MINOXIDIL 2.5MG TABLET PO SCH (21:00)
[2022-04-27] MEDS: METOPROLOL TARTRATE 50MG TABLET PO SCH (21:00)
[2022-04-27] MEDS: ATORVASTATIN CALCIUM 40MG TABLET PO SCH (21:00)
[2022-04-28] VITALS (9 sets, daily range): BP systolic 113–155; BP diastolic 48–72
[2022-04-28] MEDS: BLOOD SUGAR DIAGNOSTIC STRIP TEST SCH ×4 (07:49→21:55)
[2022-04-28] MEDS: INSULIN LISPRO 100 UNITS/ML SUBCUT SCH ×4 (07:50→21:00)
[2022-04-28 08:13] LABS: HEMATOCRIT. 24.8 % (42.0-52.0); HEMOGLOBIN. 8.5 g/dL (14.0-18.0); MEAN CORPUSCULAR HEMOGLOBIN 31.8 pg (28.0-32.0); MEAN CORPUSCULAR VOLUME 92.5 fL (80.0-94.0); MEAN PLATELET VOLUME 7.3 fl (7.4-10.4); PLATELET 224 x1000/uL (130-400); RED BLOOD CELL COUNT 2.68 mill/uL (4.7-6.1); RED CELL DISTRIBUTION WIDTH 16.2 % (11.6-14.6)
[2022-04-28] MEDS: HYDRALAZINE HCL 50MG TABLET PO SCH ×2 (09:52→17:54)
[2022-04-28] MEDS: FUROSEMIDE 40MG TABLET PO SCH (09:52)
[2022-04-28] MEDS: PANTOPRAZOLE SODIUM 40 MG/VIAL IV SCH ×2 (09:52→21:54)
[2022-04-28] MEDS: METOPROLOL TARTRATE 50MG TABLET PO SCH ×2 (09:52→21:54)
[2022-04-28] MEDS: GABAPENTIN 100MG CAPSULE PO SCH (09:53)
[2022-04-28] MEDS: MINOXIDIL 2.5MG TABLET PO SCH ×2 (09:53→21:54)
[2022-04-28 11:42] LABS: PLATELET ESTIMATE NORMAL
[2022-04-28] MEDS ORDERED: VANCOMYCIN 750MG PREMIX 150 ML IV SCH (12:00)
[2022-04-28 13:27] LABS: HEMATOCRIT 22.2 % (42.0-52.0)
[2022-04-28 13:39] LABS: HEMOGLOBIN 6.9 g/dL (14.0-18.0)
[2022-04-28] MEDS: DEXT 5%/0.45% NACL 1000ML 1,000 ML IV SCH ×2 (14:13→21:56)
[2022-04-28] MEDS ORDERED: PANTOPRAZOLE SODIUM 40 MG/VIAL IV SCH (21:00)
[2022-04-28] MEDS: ATORVASTATIN CALCIUM 40MG TABLET PO SCH (21:55)
[2022-04-29] VITALS: BP 130/68
[2022-04-29 03:41] VITALS: BP 132/67
[2022-04-29 03:57] LABS: PROTHROMBIN TIME 10.7 sec (9.6-11.0)
[2022-04-29] MEDS: BLOOD SUGAR DIAGNOSTIC STRIP TEST SCH ×4 (07:01→21:00)
[2022-04-29] MEDS: INSULIN LISPRO 100 UNITS/ML SUBCUT SCH ×4 (07:01→21:00)
[2022-04-29 08:00] VITALS: BP 138/84
[2022-04-29 08:11] LABS: HEMATOCRIT. 26.3 % (42.0-52.0); MEAN CORPUSCULAR HEMOGLOBIN 31.5 pg (28.0-32.0); MEAN CORPUSCULAR VOLUME 91.8 fL (80.0-94.0); PLATELET 245 x1000/uL (130-400); RED BLOOD CELL COUNT 2.86 mill/uL (4.7-6.1); RED CELL DISTRIBUTION WIDTH 15.8 % (11.6-14.6)
[2022-04-29] MEDS: FUROSEMIDE 40MG TABLET PO SCH (09:00)
[2022-04-29] MEDS: GABAPENTIN 100MG CAPSULE PO SCH (09:00)
[2022-04-29] MEDS: METOPROLOL TARTRATE 50MG TABLET PO SCH ×2 (09:00→21:00)
[2022-04-29] MEDS: HYDRALAZINE HCL 50MG TABLET PO SCH ×2 (09:00→17:00)
[2022-04-29] MEDS: MINOXIDIL 2.5MG TABLET PO SCH ×2 (09:00→21:00)
[2022-04-29] MEDS: PANTOPRAZOLE SODIUM 40 MG/VIAL IV SCH ×2 (09:05→22:34)
[2022-04-29 09:43] LABS: PLATELET ESTIMATE NORMAL
[2022-04-29 12:00] VITALS: BP 110/57
[2022-04-29 16:00] VITALS: BP 104/82
[2022-04-29] MEDS ORDERED: VANCOMYCIN 750MG PMX (XELLIA) 150 ML IV SCH (16:00)
[2022-04-29 20:00] VITALS: BP 100/55
[2022-04-29] MEDS: ATORVASTATIN CALCIUM 40MG TABLET PO SCH (22:34)
[2022-04-30] VITALS: BP 121/71
[2022-04-30 03:22] LABS: HEMATOCRIT. 26.6 % (42.0-52.0); MEAN CORPUSCULAR HEMOGLOBIN 30.9 pg (28.0-32.0); MEAN CORPUSCULAR VOLUME 91.1 fL (80.0-94.0); MEAN PLATELET VOLUME 6.5 fl (7.4-10.4); PLATELET 271 x1000/uL (130-400); RED BLOOD CELL COUNT 2.92 mill/uL (4.7-6.1); RED CELL DISTRIBUTION WIDTH 15.3 % (11.6-14.6)
[2022-04-30 03:33] LABS: PROTHROMBIN TIME 11.2 sec (9.6-11.0)
[2022-04-30 04:00] VITALS: BP 127/70
[2022-04-30 04:21] LABS: PLATELET ESTIMATE NORMAL
[2022-04-30] MEDS: DEXT 5%/0.45% NACL 1000ML 1,000 ML IV SCH (06:41)
[2022-04-30] MEDS: BLOOD SUGAR DIAGNOSTIC STRIP TEST SCH ×4 (06:42→21:19)
[2022-04-30] MEDS: INSULIN LISPRO 100 UNITS/ML SUBCUT SCH ×4 (07:50→21:00)
[2022-04-30 08:00] VITALS: BP 120/52
[2022-04-30] MEDS: FUROSEMIDE 40MG TABLET PO SCH (09:00)
[2022-04-30] MEDS ORDERED: KCL 20MEQ/100ML PREMIX 100 ML IV NR (09:00)
[2022-04-30] MEDS: HYDRALAZINE HCL 50MG TABLET PO SCH ×2 (09:00→18:07)
[2022-04-30] MEDS: MINOXIDIL 2.5MG TABLET PO SCH ×2 (09:00→20:24)
[2022-04-30] MEDS: METOPROLOL TARTRATE 50MG TABLET PO SCH ×2 (09:00→20:24)
[2022-04-30] MEDS: GABAPENTIN 100MG CAPSULE PO SCH (09:00)
[2022-04-30] MEDS: PANTOPRAZOLE SODIUM 40 MG/VIAL IV SCH (10:10)
[2022-04-30] MEDS ORDERED: SIMETHICONE 40 MG/0.6 ML 15ML ONE (10:12)
[2022-04-30] MEDS ORDERED: PROPOFOL 200MG/20ML VIAL IV ONE ×2 (10:19→10:55)
[2022-04-30] MEDS ORDERED: LIDOCAINE HCL 1% 10 MG/ML 10ML VIAL ONE (10:20)
[2022-04-30] MEDS ORDERED: MIDAZOLAM HCL 2 MG/2 ML VIAL ONE ×2 (10:20)
[2022-04-30] MEDS ORDERED: PHENYLEPHRINE HCL 10 MG/ML 1ML (IV VIAL) IV ONE (10:21)
[2022-04-30] MEDS ORDERED: EPHEDRINE SULFATE 50MG/ML VIAL ONE (10:21)
[2022-04-30] MEDS ORDERED: SODIUM CHLORIDE 0.9% 10ML VIAL ONE (10:24)
[2022-04-30 12:00] VITALS: BP 128/60
[2022-04-30] MEDS ORDERED: POTASSIUM CHLORIDE 20MEQ TABLET SR PO NR (15:15)
[2022-04-30 16:00] VITALS: BP 128/60
[2022-04-30 17:00] LABS: HEPATITIS B SURFACE ANTIGEN NEGATIVE
[2022-04-30 20:00] VITALS: BP 114/67
[2022-04-30] MEDS: ATORVASTATIN CALCIUM 40MG TABLET PO SCH (20:23)
[2022-04-30] MEDS: OMEPRAZOLE 20MG CAPSULE EXTENDED RELEASE PO SCH (20:24)
[2022-05-01] VITALS: BP 101/58
[2022-05-01 04:00] VITALS: BP 135/88
[2022-05-01] MEDS: OMEPRAZOLE 20MG CAPSULE EXTENDED RELEASE PO SCH ×2 (04:45→23:32)
[2022-05-01] MEDS: BLOOD SUGAR DIAGNOSTIC STRIP TEST SCH ×4 (05:00→21:14)
[2022-05-01 07:29] LABS: HEMOGLOBIN. 9.2 g/dL (14.0-18.0); MEAN CORPUSCULAR HEMOGLOBIN 31.7 pg (28.0-32.0); MEAN CORPUSCULAR VOLUME 93.2 fL (80.0-94.0); MEAN PLATELET VOLUME 6.5 fl (7.4-10.4); PLATELET 284 x1000/uL (130-400); RED CELL DISTRIBUTION WIDTH 15.7 % (11.6-14.6)
[2022-05-01] MEDS: INSULIN LISPRO 100 UNITS/ML SUBCUT SCH ×4 (07:50→21:00)
[2022-05-01 08:00] VITALS: BP 170/65
[2022-05-01 09:02] LABS: PLATELET ESTIMATE NORMAL
[2022-05-01] MEDS: GABAPENTIN 100MG CAPSULE PO SCH (10:08)
[2022-05-01] MEDS: MINOXIDIL 2.5MG TABLET PO SCH ×2 (10:09→21:00)
[2022-05-01] MEDS: METOPROLOL TARTRATE 50MG TABLET PO SCH ×2 (10:09→21:00)
[2022-05-01] MEDS: HYDRALAZINE HCL 50MG TABLET PO SCH ×2 (10:09→17:00)
[2022-05-01] MEDS: FUROSEMIDE 40MG TABLET PO SCH (10:10)
[2022-05-01 12:00] VITALS: BP 127/55
[2022-05-01 16:00] VITALS: BP 131/60
[2022-05-01 20:00] VITALS: BP 133/78
[2022-05-01] MEDS ORDERED: VANCOMYCIN 750MG PMX (XELLIA) 150 ML IV NR (20:00)
[2022-05-01] MEDS: ATORVASTATIN CALCIUM 40MG TABLET PO SCH (23:32)
[2022-05-02] VITALS: BP 122/54
[2022-05-02 04:00] VITALS: BP 107/49
[2022-05-02] MEDS: OMEPRAZOLE 20MG CAPSULE EXTENDED RELEASE PO SCH ×2 (06:39→21:40)
[2022-05-02] MEDS: INSULIN LISPRO 100 UNITS/ML SUBCUT SCH ×4 (06:39→21:00)
[2022-05-02] MEDS: BLOOD SUGAR DIAGNOSTIC STRIP TEST SCH ×4 (06:39→21:41)
[2022-05-02 07:36] LABS: HEMATOCRIT. 23.3 % (42.0-52.0); HEMOGLOBIN. 8.1 g/dL (14.0-18.0); MEAN CORPUSCULAR HEMOGLOBIN 32.1 pg (28.0-32.0); MEAN PLATELET VOLUME 6.7 fl (7.4-10.4); PLATELET 240 x1000/uL (130-400); RED BLOOD CELL COUNT 2.53 mill/uL (4.7-6.1); RED CELL DISTRIBUTION WIDTH 15.5 % (11.6-14.6)
[2022-05-02 08:00] VITALS: BP 135/57
[2022-05-02] MEDS: FUROSEMIDE 40MG TABLET PO SCH (10:09)
[2022-05-02] MEDS: HYDRALAZINE HCL 50MG TABLET PO SCH ×2 (10:09→17:00)
[2022-05-02] MEDS: GABAPENTIN 100MG CAPSULE PO SCH (10:09)
[2022-05-02] MEDS: MINOXIDIL 2.5MG TABLET PO SCH ×2 (10:09→21:41)
[2022-05-02] MEDS: METOPROLOL TARTRATE 50MG TABLET PO SCH ×2 (10:09→21:00)
[2022-05-02] MEDS ORDERED: POTASSIUM CHLORIDE 20MEQ/PACKET GT NR (10:30)
[2022-05-02] MEDS ORDERED: POTASSIUM CHLORIDE 20MEQ TABLET SR PO SCH (11:15)
[2022-05-02 12:00] VITALS: BP 107/60
[2022-05-02 14:02] LABS: PLATELET ESTIMATE NORMAL
[2022-05-02 16:00] VITALS: BP 105/63
[2022-05-02 20:00] VITALS: BP 116/60
[2022-05-02] MEDS: ATORVASTATIN CALCIUM 40MG TABLET PO SCH (21:41)
[2022-05-03] VITALS: BP 123/83
[2022-05-03 04:00] VITALS: BP 106/37
[2022-05-03] MEDS: BLOOD SUGAR DIAGNOSTIC STRIP TEST SCH ×4 (06:29→21:39)
[2022-05-03] MEDS: OMEPRAZOLE 20MG CAPSULE EXTENDED RELEASE PO SCH ×2 (06:29→21:38)
[2022-05-03 07:03] LABS: HEMATOCRIT. 26.6 % (42.0-52.0); MEAN CORPUSCULAR HEMOGLOBIN 30.8 pg (28.0-32.0); MEAN CORPUSCULAR VOLUME 91.4 fL (80.0-94.0); MEAN PLATELET VOLUME 6.6 fl (7.4-10.4); PLATELET 292 x1000/uL (130-400); RED BLOOD CELL COUNT 2.91 mill/uL (4.7-6.1); RED CELL DISTRIBUTION WIDTH 15.6 % (11.6-14.6)
[2022-05-03] MEDS: INSULIN LISPRO 100 UNITS/ML SUBCUT SCH ×4 (07:50→21:00)
[2022-05-03 08:00] VITALS: BP_SYST 145; BP_SYST 157; BP_DIAS 60; BP_DIAS 87
[2022-05-03] MEDS: FUROSEMIDE 40MG TABLET PO SCH (08:29)
[2022-05-03] MEDS: GABAPENTIN 100MG CAPSULE PO SCH (08:29)
[2022-05-03] MEDS: METOPROLOL TARTRATE 50MG TABLET PO SCH ×2 (08:30→21:38)
[2022-05-03] MEDS: HYDRALAZINE HCL 50MG TABLET PO SCH ×2 (08:30→18:40)
[2022-05-03] MEDS: MINOXIDIL 2.5MG TABLET PO SCH ×2 (08:30→21:38)
[2022-05-03 10:43] LABS: PLATELET ESTIMATE NORMAL
[2022-05-03 12:00] VITALS: BP 103/54
[2022-05-03 16:00] VITALS: BP 139/71
[2022-05-03 20:00] VITALS: BP 133/54
[2022-05-03] MEDS ORDERED: VANCOMYCIN 500MG PREMIX 100 ML IV SCH (21:00)
[2022-05-03] MEDS: ATORVASTATIN CALCIUM 40MG TABLET PO SCH (21:38)
[2022-05-03] MEDS: EPOETIN ALFA-EPBX 4,000 UNIT/ML VIAL SUBCUT SCH (21:39)
[2022-05-04] VITALS: BP 119/60
[2022-05-04 04:00] VITALS: BP 123/63
[2022-05-04 05:53] LABS: HEMATOCRIT. 25.5 % (42.0-52.0); HEMOGLOBIN. 8.5 g/dL (14.0-18.0); MEAN CORPUSCULAR HEMOGLOBIN 30.7 pg (28.0-32.0); MEAN CORPUSCULAR VOLUME 92.2 fL (80.0-94.0); MEAN PLATELET VOLUME 6.7 fl (7.4-10.4); PLATELET 293 x1000/uL (130-400); RED BLOOD CELL COUNT 2.77 mill/uL (4.7-6.1); RED CELL DISTRIBUTION WIDTH 15.8 % (11.6-14.6)
[2022-05-04] MEDS: OMEPRAZOLE 20MG CAPSULE EXTENDED RELEASE PO SCH ×2 (06:15→21:41)
[2022-05-04] MEDS: BLOOD SUGAR DIAGNOSTIC STRIP TEST SCH ×4 (06:24→21:44)
[2022-05-04] MEDS: INSULIN LISPRO 100 UNITS/ML SUBCUT SCH ×4 (07:50→21:00)
[2022-05-04 08:00] VITALS: BP 130/60
[2022-05-04] MEDS: FUROSEMIDE 40MG TABLET PO SCH (10:13)
[2022-05-04] MEDS: GABAPENTIN 100MG CAPSULE PO SCH (10:13)
[2022-05-04] MEDS: HYDRALAZINE HCL 50MG TABLET PO SCH ×2 (10:14→17:42)
[2022-05-04] MEDS: METOPROLOL TARTRATE 50MG TABLET PO SCH ×2 (10:14→21:00)
[2022-05-04] MEDS: MINOXIDIL 2.5MG TABLET PO SCH ×2 (10:14→21:00)
[2022-05-04 12:00] VITALS: BP 125/57
[2022-05-04 13:41] LABS: PLATELET ESTIMATE NORMAL
[2022-05-04 15:44] VITALS: BP 121/46
[2022-05-04 20:00] VITALS: BP 98/50
[2022-05-04] MEDS: ATORVASTATIN CALCIUM 40MG TABLET PO SCH (21:41)
[2022-05-05] VITALS: BP 118/60
[2022-05-05 04:40] VITALS: BP 107/42
[2022-05-05 06:10] LABS: HEMATOCRIT. 23.8 % (42.0-52.0); HEMOGLOBIN. 8.2 g/dL (14.0-18.0); MEAN CORPUSCULAR HEMOGLOBIN 31.2 pg (28.0-32.0); MEAN CORPUSCULAR VOLUME 91.2 fL (80.0-94.0); MEAN PLATELET VOLUME 6.7 fl (7.4-10.4); PLATELET 283 x1000/uL (130-400); RED BLOOD CELL COUNT 2.61 mill/uL (4.7-6.1); RED CELL DISTRIBUTION WIDTH 15.6 % (11.6-14.6)
[2022-05-05] MEDS: OMEPRAZOLE 20MG CAPSULE EXTENDED RELEASE PO SCH (06:49)
[2022-05-05] MEDS: BLOOD SUGAR DIAGNOSTIC STRIP TEST SCH ×4 (06:50→20:58)
[2022-05-05 08:00] VITALS: BP 124/55
[2022-05-05 09:37] LABS: PLATELET ESTIMATE NORMAL
[2022-05-05] MEDS: GABAPENTIN 100MG CAPSULE PO SCH (10:12)
[2022-05-05] MEDS: FUROSEMIDE 40MG TABLET PO SCH (10:12)
[2022-05-05] MEDS: METOPROLOL TARTRATE 50MG TABLET PO SCH ×2 (10:13→21:49)
[2022-05-05] MEDS: HYDRALAZINE HCL 50MG TABLET PO SCH ×2 (10:14→18:47)
[2022-05-05] MEDS: MINOXIDIL 2.5MG TABLET PO SCH ×2 (10:18→22:04)
[2022-05-05 12:00] VITALS: BP 128/60
[2022-05-05] MEDS: INSULIN LISPRO 100 UNITS/ML SUBCUT SCH ×4 (12:50→21:00)
[2022-05-05] MEDS ORDERED: SENNOSIDES 8.6MG TABLET GT PRN (14:15)
[2022-05-05 16:00] VITALS: BP 128/60
[2022-05-05 17:32] LABS: HEPATITIS B SURFACE ANTIGEN NEGATIVE
[2022-05-05 20:00] VITALS: BP 117/63
[2022-05-05] MEDS: ATORVASTATIN CALCIUM 40MG TABLET PO SCH (21:47)
[2022-05-05] MEDS: LANSOPRAZOLE 30MG DR CAPSULE NG SCH (22:10)
[2022-05-06] VITALS: BP 108/48
[2022-05-06 04:00] VITALS: BP 131/58
[2022-05-06 06:36] LABS: HEMATOCRIT. 23.3 % (42.0-52.0); MEAN CORPUSCULAR HEMOGLOBIN 31.4 pg (28.0-32.0); MEAN CORPUSCULAR VOLUME 91.4 fL (80.0-94.0); MEAN PLATELET VOLUME 6.6 fl (7.4-10.4); PLATELET 277 x1000/uL (130-400); RED BLOOD CELL COUNT 2.55 mill/uL (4.7-6.1); RED CELL DISTRIBUTION WIDTH 16.3 % (11.6-14.6)
[2022-05-06] MEDS: LANSOPRAZOLE 30MG DR CAPSULE NG SCH ×2 (06:37→21:28)
[2022-05-06] MEDS: BLOOD SUGAR DIAGNOSTIC STRIP TEST SCH ×4 (06:37→21:59)
[2022-05-06] MEDS: INSULIN LISPRO 100 UNITS/ML SUBCUT SCH ×4 (07:50→21:00)
[2022-05-06 08:00] VITALS: BP 119/53
[2022-05-06 08:55] LABS: PLATELET ESTIMATE NORMAL
[2022-05-06] MEDS: METOPROLOL TARTRATE 50MG TABLET PO SCH ×2 (09:41→21:00)
[2022-05-06] MEDS: HYDRALAZINE HCL 50MG TABLET PO SCH ×3 (09:41→17:16)
[2022-05-06] MEDS: DOCUSATE SODIUM SUGAR FREE 100MG/10ML UDC GT SCH (09:41)
[2022-05-06] MEDS: MINOXIDIL 2.5MG TABLET PO SCH ×2 (09:41→21:00)
[2022-05-06] MEDS: FUROSEMIDE 40MG TABLET PO SCH (09:41)
[2022-05-06 12:00] VITALS: BP 106/52
[2022-05-06] MEDS: GABAPENTIN 100MG CAPSULE PO SCH (13:00)
[2022-05-06 16:00] VITALS: BP 133/64
[2022-05-06] MEDS ORDERED: BISACODYL 10MG SUPP PR NR (16:30)
[2022-05-06 20:00] VITALS: BP_SYST 100
[2022-05-06] MEDS: ATORVASTATIN CALCIUM 40MG TABLET PO SCH (21:28)
[2022-05-06] MEDS: EPOETIN ALFA-EPBX 4,000 UNIT/ML VIAL SUBCUT SCH (21:29)
[2022-05-06] MEDS ORDERED: DIPHENHYDRAMINE 50MG/ML VIAL IV NR (23:30)
[2022-05-07] VITALS: BP 98/52
[2022-05-07 04:00] VITALS: BP 117/59
[2022-05-07] MEDS ORDERED: VANCOMYCIN 500MG PREMIX 100 ML IV NR (06:00)
[2022-05-07] MEDS: LANSOPRAZOLE 30MG DR CAPSULE NG SCH (06:13)
[2022-05-07 06:37] LABS: BASOPHILS % 0.5 % (0.0-2.0); EOSINOPHILS % 10.6 % (0.0-5.0); HEMATOCRIT. 23.8 % (42.0-52.0); HEMOGLOBIN. 8.2 g/dL (14.0-18.0); LYMPHOCYTES % 11.7 % (20.0-50.0); MEAN CORPUSCULAR HEMOGLOBIN 31.2 pg (28.0-32.0); MEAN CORPUSCULAR VOLUME 90.9 fL (80.0-94.0); MEAN PLATELET VOLUME 6.8 fl (7.4-10.4); MONOCYTES % 7.9 % (2.0-8.0); NEUTROPHILS % 69.3 % (40.0-76.0); PLATELET 283 x1000/uL (130-400); RED BLOOD CELL COUNT 2.62 mill/uL (4.7-6.1); RED CELL DISTRIBUTION WIDTH 15.9 % (11.6-14.6)
[2022-05-07] MEDS: BLOOD SUGAR DIAGNOSTIC STRIP TEST SCH ×3 (06:42→17:20)
[2022-05-07] MEDS: INSULIN LISPRO 100 UNITS/ML SUBCUT SCH ×3 (07:50→17:50)
[2022-05-07 08:00] VITALS: BP 125/77
[2022-05-07] MEDS: DOCUSATE SODIUM SUGAR FREE 100MG/10ML UDC GT SCH (09:00)
[2022-05-07] MEDS: GABAPENTIN 100MG CAPSULE PO SCH (09:00)
[2022-05-07] MEDS: FUROSEMIDE 40MG TABLET PO SCH (09:56)
[2022-05-07] MEDS: METOPROLOL TARTRATE 50MG TABLET PO SCH (09:59)
[2022-05-07] MEDS: MINOXIDIL 2.5MG TABLET PO SCH (10:00)
[2022-05-07] MEDS: HYDRALAZINE HCL 50MG TABLET PO SCH ×2 (10:00→17:00)
[2022-05-07 12:00] VITALS: BP_SYST 105; BP_SYST 125; BP_DIAS 71; BP_DIAS 77
[2022-05-07 16:08] VITALS: BP 103/77
== END 2022-05-07 18:36 | DRG 871 ==
LOC: ER 11:25 → EDBEDREQ 14:46 → EDBEDREQTM 14:46 → 6WST 16:12 → EDBEDREQTM 16:15 → EDBEDREQ 16:16 → ENRESERV 19:35
PROVIDERS: ADMIT Internal Medicine; ATTEND Internal Medicine
PROC: 5A1D70Z Performance of Urinary Filtration, Intermittent, Less than 6 Hours Per Day (ICD-10-PCS; 2022-04-27)
PROC: 30233N1 Transfusion of Nonautologous Red Blood Cells into Peripheral Vein, Percutaneous Approach (ICD-10-PCS; 2022-04-28)
PROC: 5A1D70Z Performance of Urinary Filtration, Intermittent, Less than 6 Hours Per Day (ICD-10-PCS; 2022-04-29)
PROC: 0DB38ZX Excision of Lower Esophagus, Via Natural or Artificial Opening Endoscopic, Diagnostic (ICD-10-PCS; principal; 2022-04-30)
PROC: 0DB78ZX Excision of Stomach, Pylorus, Via Natural or Artificial Opening Endoscopic, Diagnostic (ICD-10-PCS; 2022-04-30)
PROC: 5A1D70Z Performance of Urinary Filtration, Intermittent, Less than 6 Hours Per Day (ICD-10-PCS; 2022-05-01)
PROC: 5A1D70Z Performance of Urinary Filtration, Intermittent, Less than 6 Hours Per Day (ICD-10-PCS; 2022-05-03)
PROC: 5A1D70Z Performance of Urinary Filtration, Intermittent, Less than 6 Hours Per Day (ICD-10-PCS; 2022-05-06)
DX: A41.02 Sepsis due to Methicillin resistant Staphylococcus aureus (principal); K22.11 Ulcer of esophagus with bleeding; N18.6 End stage renal disease; K29.31 Chronic superficial gastritis with bleeding; D62 Acute posthemorrhagic anemia; I13.2 Hypertensive heart and chronic kidney disease with heart failure and with stage 5 chronic kidney disease, or end stage renal disease; I50.32 Chronic diastolic (congestive) heart failure; E78.5 Hyperlipidemia, unspecified; E11.22 Type 2 diabetes mellitus with diabetic chronic kidney disease; I25.10 Atherosclerotic heart disease of native coronary artery without angina pectoris; N40.0 Benign prostatic hyperplasia without lower urinary tract symptoms; K22.81 Esophageal polyp; I08.1 Rheumatic disorders of both mitral and tricuspid valves; K44.9 Diaphragmatic hernia without obstruction or gangrene; Z20.822 Contact with and (suspected) exposure to COVID-19; Z90.49 Acquired absence of other specified parts of digestive tract; Z86.73 Personal history of transient ischemic attack (TIA), and cerebral infarction without residual deficits; Z87.19 Personal history of other diseases of the digestive system; Z99.2 Dependence on renal dialysis; Z79.899 Other long term (current) drug therapy; Z79.82 Long term (current) use of aspirin; Z79.02 Long term (current) use of antithrombotics/antiplatelets; Z93.1 Gastrostomy status
CPT/HCPCS: 36415; 71045; 74176; 80048; 80053; 80202; 82607; 82728; 82746; 82962; 83036; 83540; 83550; 83735; 85014; 85018; 85025; 85044; 86705; 86709; 86803; 86850; 86900; 86920; 87077; 87186; 87340; 87426; 88305; 88312; 88313; 88341; 93005; 93306; 99291; C9113; J0885; J1200; J1815; J2250; J2370; J2405; J2704; J3370; J3480; J3490; P9016